=== PATIENT | female | born 1985 | race Caucasian/White ===

== ENCOUNTER 2017-01-02 23:01 | Emergency (ER) | payer OTHER ==
--- NOTE | 2017-01-03 00:39 | ED PDOC ---
HPI: General Adult Time Seen by Provider: 01/03/17 00:00 Chief Complaint (Nursing): Flu-like Symptoms Chief Complaint (Provider): sore throat, neck pain, fever, nausea History Per: Patient History/Exam Limitations: no limitations Onset/Duration Of Symptoms: Days (1) Have you had recent travel within the past 21 days to any of the following countries: [place], [place], [place] or [place]?: No Current Symptoms Are (Timing): Still Present Additional Complaint(s): 31yo female presents to the ED with c/o sore throat, anterior neck pain, fever, nausea since yesterday. Tylenol provided some relief. Patient notes her voice changed some tonight. No vomiting, diarrhea, cough, runny nose. Past Medical History Reviewed: Historical Data, Nursing Documentation, Vital Signs Vital Signs: Last Vital Signs Temp 98.1 F 01/03/17 03:31 Pulse 75 01/03/17 03:31 Resp 16 01/03/17 03:31 BP 125/80 01/03/17 03:31 Pulse Ox 99 01/03/17 03:31 - Medical History PMH: No Chronic Diseases - Surgical History Surgical History: - Family History Family History: States: No Known Family Hx - Social History Current smoker - smoking cessation education provided: No Alcohol: None Drugs: Denies - Home Medications Home Medications: Ambulatory Orders Medication Instructions Recorded Amoxicillin/Clavulanate [Augmentin 1 tab PO BID #20 tab 01/03/17 875 MG-125 MG] - Allergies Allergies/Adverse Reactions: Allergies Allergy/AdvReac Type Severity Reaction Status Date / Time No Known Allergies Allergy Verified 01/02/17 23:14 Review of Systems ROS Statement: Except As Marked, All Systems Reviewed And Found Negative Constitutional: Positive for: Fever ENT: Positive for: Throat Pain. Negative for: Nose Discharge Respiratory: Negative for: Cough Gastrointestinal: Positive for: Nausea. Negative for: Vomiting, Diarrhea Musculoskeletal: Positive for: Neck Pain Physical Exam - Reviewed Nursing Documentation Reviewed: Yes Vital Signs Reviewed: Yes - Physical Exam Appears: Positive for: Well, No Acute Distress Head Exam: Positive for: ATRAUMATIC, NORMAL INSPECTION, NORMOCEPHALIC Skin: Positive for: Normal Color, Warm, Dry Eye Exam: Positive for: Normal appearance, EOMI, PERRL ENT: Positive for: Pharyngeal Erythema, Other (b/l tonsillar erythema, petechiae in mouth ). Negative for: Tonsillar Exudate, Tonsillar Swelling Neck: Positive for: Normal, Painless ROM, Supple Cardiovascular/Chest: Positive for: Regular Rate, Rhythm. Negative for: Murmur , Tachycardia Respiratory: Positive for: Normal Breath Sounds. Negative for: Wheezing, Respiratory Distress Gastrointestinal/Abdominal: Positive for: Normal Exam, Bowel Sounds, Soft. Negative for: Tenderness Back: Positive for: Normal Inspection. Negative for: L CVA Tenderness, R CVA Tenderness Extremity: Positive for: Normal ROM. Negative for: Deformity, Swelling Neurologic/Psych: Positive for: Alert, Oriented - Laboratory Results Result Diagrams: 01/03/17 00:52 01/03/17 00:52 - ECG O2 Sat by Pulse Oximetry: 96 Pulse Ox Interpretation: Normal (RA) Medical Decision Making Medical Decision Makin: Impression: r/o strep vs. flu Plan: Labs IVF, Toradol 30mg IV, Zofran 4mg IV flu, strep swabs reassess 0315: Labs reviewed, strep swab positive and urine indicative of UTI. Patient given Rx for augmentin and is stable for d/c. Advised to f/u w/ PCP in 1-2 days and return to ED with any worsening or concerning symptoms. Scribe Attestation: Documented by Danielle Guadalupe acting as a scribe for Yousuf Jones MD. Provider Scribe Attestation: All medical record entries made by the Scribe were at my direction and personally dictated by me. I have reviewed the chart and agree that the record accurately reflects my personal performance of the history, physical exam, medical decision making, and the department course for this patient. I have also personally directed, reviewed, and agree with the discharge instructions and disposition. Disposition - Clinical Impression Clinical Impression: Strep pharyngitis, UTI (urinary tract infection) - Patient ED Disposition Is Patient to be Admitted: No Counseled Patient/Family Regarding: Studies Performed, Diagnosis, Need For Followup, Rx Given - Disposition Referrals: Cliff Gatica MD [Primary Care Provider] - Disposition: Routine/Home Disposition Time: 02:00 Condition: GOOD Additional Instructions: follow up with your primary doctor in1-2 days. return to the ED with any worsening or concerning symptoms Prescriptions: Amoxicillin/Clavulanate [Augmentin 875 MG-125 MG] 1 tab PO BID #20 tab Instructions: Urinary Tract Infection in Women (ED), Pharyngitis (ED)
[2017-01-03] MEDS ORDERED: Sodium Chloride 0.9% 1,000 ML IV STA (00:40)
[2017-01-03 01:25] LABS: BASO % 0.1 % (0.0-2.0); EOS % 0.3 % (0.0-4.0); HEMATOCRIT 41.6 % (34.0-47.0); LYMPH # 0.6 K/uL (1.0-4.3); LYMPH % 4.4 % (20.0-40.0); MEAN CELL VOLUME 86.7 fl (81.0-99.0); MEAN CORPUSCULAR HEMOGLOBIN 30.1 pg (27.0-31.0); MEAN CORPUSCULAR HGB CONC 34.8 g/dL (33.0-37.0); MEAN PLATELET VOLUME 7.9 fl (7.2-11.7); MONO # 0.6 K/uL (0.0-0.8); MONO % 4.5 % (0.0-10.0); NEUT # 12.1 K/uL (1.8-7.0); NEUT % 90.7 % (50.0-75.0); PLATELET COUNT 197 K/uL (130-400); RED CELL DISTRIBUTION WIDTH 12.5 % (11.5-14.5); WHITE BLOOD COUNT 13.3 K/uL (4.8-10.8)
[2017-01-03 01:42] LABS: ALB/GLOB RATIO 1.2 (1.0-2.1); ALKALINE PHOSPHATASE 119 U/L (38-126); ALT/SGPT 20 U/L (9-52); AST/SGOT 33 U/L (14-36); BILIRUBIN,TOTAL 1.9 mg/dl (0.2-1.3); BLOOD UREA NITROGEN 9 mg/dl (7-17); CALCIUM 9.5 mg/dL (8.4-10.2); CARBON DIOXIDE 22 mmol/L (22-30); CHLORIDE 103 mmol/L (98-107); GFR AFRICAN-AMERICAN > 60; GLUCOSE,RANDOM 115 mg/dL (65-105); POTASSIUM 4.4 MMOL/L (3.6-5.0); SODIUM 142 mmol/l (132-148); TOTAL PROTEIN 8.4 G/DL (6.3-8.2)
[2017-01-03 01:42] LABS: RBC URINE 2 /hpf (0-3); URINE BACTERIA MANY (<OCC); URINE BILIRUBIN NEGATIVE (NEGATIVE); URINE BLOOD SMALL (NEGATIVE); URINE COLOR YELLOW (YELLOW); URINE GLUCOSE (UA) NEG (Normal); URINE KETONE NEGATIVE (NEGATIVE); URINE LEUKOCYTE ESTERASE MOD Leu/uL (Negative); URINE PROTEIN NEGATIVE (NEGATIVE); URINE UROBILINOGEN 0.2-1.0 mg/dL (0.2-1.0); WBC URINE 19 /hpf (0-5)
[2017-01-03] MEDS ORDERED: Amoxicillin-Clav 250-125 mg Tab PO ONE (03:12)
[2017-01-03] MEDS ORDERED: Amoxicillin-Clav 875-125 mg Tab PO STA (03:16)
[2017-01-03 03:32] VITALS: BP 125/80; PULSE 75; RESP 16; TEMP 98.1
[2017-01-03 05:11] LABS: NEUTROPHIL 86 % (42-75)
[2017-01-03 05:12] LABS: EOSINOPHIL 1 % (0-7)
[2017-01-03 06:30] VITALS: O2SAT 96
[2017-01-03 06:46] LABS: TOTAL CELLS COUNTED 100
== END 2017-01-03 03:32 | disposition home or self-care (01) ==
LOC: H.ER 23:01
DX: J02.0 Streptococcal pharyngitis (principal); M54.2 Cervicalgia; N39.0 Urinary tract infection, site not specified

== ENCOUNTER 2017-01-11 08:40 | Emergency (ER) | payer OTHER ==
[2017-01-11 09:08] VITALS: BP 105/77; PULSE 98; RESP 18; TEMP 98.1; O2SAT 98
--- NOTE | 2017-01-11 09:27 | ED PDOC ---
HPI: CCC, URI, Sore Throat Time Seen by Provider: 01/11/17 08:56 Chief Complaint (Nursing): Cough, Cold, Congestion Chief Complaint (Provider): Cough, Cold, Congestion History Per: Patient History/Exam Limitations: no limitations Onset/Duration Of Symptoms: Days Current Symptoms Are (Timing): Still Present Location Of Pain: Throat Sick Contacts (Context): None Associated Symptoms: Cough, Sputum Ear Symptoms: Bilateral: None Severity: Mild Additional Complaint(s): Patient is a 31 year old female who presents to ED for evaluation of sore throat and dysuria for 1week. Patient was initially evaluated at the start of sore throat, diagnosed with strep and started on Augmentin. Presents today for continued sore that and now dsyuria. Denies vomiting but notes productive cough of yellow sputum . Past Medical History Reviewed: Historical Data, Nursing Documentation, Vital Signs Vital Signs: Last Vital Signs Temp 98.1 F 01/11/17 09:05 Pulse 98 H 01/11/17 09:05 Resp 18 01/11/17 09:05 BP 105/77 01/11/17 09:05 Pulse Ox 98 01/11/17 09:30 - Medical History PMH: No Chronic Diseases - Surgical History Surgical History: - Family History Family History: States: No Known Family Hx - Living Arrangements Living Arrangements: With Family - Home Medications Home Medications: Ambulatory Orders Medication Instructions Recorded Amoxicillin/Clavulanate [Augmentin 1 tab PO BID #20 tab 01/03/17 875 MG-125 MG] Azithromycin [Zithromax] 250 mg PO DAILY #6 tab 01/11/17 - Allergies Allergies/Adverse Reactions: Allergies Allergy/AdvReac Type Severity Reaction Status Date / Time No Known Allergies Allergy Verified 01/02/17 23:14 Review of Systems ROS Statement: Except As Marked, All Systems Reviewed And Found Negative Constitutional: Negative for: Fever, Chills ENT: Positive for: Throat Pain. Negative for: Throat Swelling Cardiovascular: Negative for: Chest Pain Gastrointestinal: Negative for: Nausea, Vomiting, Abdominal Pain Genitourinary Female: Positive for: Dysuria. Negative for: Frequency, Hematuria Musculoskeletal: Negative for: Back Pain Physical Exam - Reviewed Nursing Documentation Reviewed: Yes Vital Signs Reviewed: Yes - Physical Exam Appears: Positive for: Non-toxic, No Acute Distress Skin: Positive for: Normal Color, Warm Eye Exam: Positive for: Normal appearance ENT: Positive for: Pharyngeal Erythema. Negative for: Tonsillar Exudate Neck: Positive for: Normal, Painless ROM, Supple Gastrointestinal/Abdominal: Positive for: Normal Exam. Negative for: Tenderness , Distended Back: Positive for: Normal Inspection. Negative for: L CVA Tenderness, R CVA Tenderness Extremity: Positive for: Normal ROM Neurologic/Psych: Positive for: Alert, Oriented - ECG O2 Sat by Pulse Oximetry: 98 (RA) Pulse Ox Interpretation: Normal Medical Decision Making Medical Decision Making: Time: 0900 Initial impression: Strep throat r/o UTI Initial plan: -- Urine preg -- Urine dip -- CXR Scribe Attestation: Documented by Pema Lee acting as a scribe for Kahlil Meza MD MD Scribe Attestation: All medical record entries made by the Scribe were at my direction and personally dictated by me. I have reviewed the chart and agree that the record accurately reflects my personal performance of the history, physical exam, medical decision making, and the department course for this patient. I have also personally directed, reviewed, and agree with the discharge instructions and disposition. Disposition - Clinical Impression Clinical Impression: Strep pharyngitis, Upper respiratory infection - Patient ED Disposition Is Patient to be Admitted: No Counseled Patient/Family Regarding: Studies Performed, Diagnosis, Need For Followup, Rx Given - Disposition Referrals: [facility] [Outside] Disposition: Routine/Home Disposition Time: 10:26 Condition: FAIR Prescriptions: Azithromycin [Zithromax] 250 mg PO DAILY #6 tab Instructions: Strep Throat (ED), Pharyngitis (ED), Upper Respiratory Infection (ED)
--- NOTE | 2017-01-11 11:25 | RAD ---
HISTORY: Cough. Portable study 10:01. COMPARISON: No prior. FINDINGS: LUNGS: No active pulmonary disease. PLEURA: No significant pleural effusion identified, no pneumothorax apparent. CARDIOVASCULAR: Normal. OSSEOUS STRUCTURES: No significant abnormalities. VISUALIZED UPPER ABDOMEN: Normal. OTHER FINDINGS: None. IMPRESSION: No active disease.
== END 2017-01-11 11:10 | disposition home or self-care (01) ==
LOC: H.ER 08:40
DX: J06.9 Acute upper respiratory infection, unspecified (principal); R05 Cough; J02.0 Streptococcal pharyngitis

== ENCOUNTER 2017-03-22 12:39 | Emergency (ER) | payer OTHER ==
[2017-03-22 12:53] VITALS: BP 100/64; PULSE 76; RESP 16; TEMP 98.5; O2SAT 100
--- NOTE | 2017-03-22 13:32 | ED PDOC ---
HPI: General Adult Time Seen by Provider: 03/22/17 13:06 Chief Complaint (Nursing): Fever Chief Complaint (Provider): fever, vomiting History Per: Patient Additional Complaint(s): 30-year-old female with no past medical history presents to emergency department complaining of fever and vomiting 1 day. Patient vomited twice this morning but was able to tolerate liquids and solids after she vomited. She has slight abdominal pain and slight sore throat. No associated diarrhea. Patient does complain of body aches. Patient's son is with patient in ED and is sick with similar symptoms. Past Medical History Reviewed: Historical Data, Nursing Documentation, Vital Signs Vital Signs: Last Vital Signs Temp 98.5 F 03/22/17 12:50 Pulse 76 03/22/17 12:50 Resp 16 03/22/17 12:50 BP 100/64 03/22/17 12:50 Pulse Ox 100 03/22/17 14:04 - Medical History PMH: No Chronic Diseases - Surgical History Surgical History: (x 2) - Family History Family History: States: No Known Family Hx - Living Arrangements Living Arrangements: With Family - Social History Current smoker - smoking cessation education provided: No Alcohol: None Drugs: Denies - Home Medications Home Medications: Ambulatory Orders Medication Instructions Recorded Amoxicillin/Clavulanate [Augmentin 1 tab PO BID #20 tab 01/03/17 875 MG-125 MG] Azithromycin [Zithromax] 250 mg PO DAILY #6 tab 01/11/17 Ondansetron [Zofran Odt] 4 mg PO ASDIR PRN #20 odt 03/22/17 - Allergies Allergies/Adverse Reactions: Allergies Allergy/AdvReac Type Severity Reaction Status Date / Time No Known Allergies Allergy Verified 01/02/17 23:14 Review of Systems ROS Statement: Except As Marked, All Systems Reviewed And Found Negative Constitutional: Positive for: Fever (T max this morning was 100.2), Other (body aches) ENT: Positive for: Throat Pain Cardiovascular: Negative for: Chest Pain Respiratory: Negative for: Cough Gastrointestinal: Positive for: Nausea, Vomiting, Abdominal Pain. Negative for : Diarrhea Genitourinary Female: Negative for: Dysuria Physical Exam - Reviewed Nursing Documentation Reviewed: Yes Vital Signs Reviewed: Yes - Physical Exam Appears: Positive for: Well, Non-toxic, No Acute Distress Skin: Negative for: Rash Eye Exam: Positive for: Normal appearance, EOMI, PERRL ENT: Positive for: Pharyngeal Erythema. Negative for: Nasal Congestion Neck: Positive for: Normal Cardiovascular/Chest: Positive for: Regular Rate, Rhythm Respiratory: Positive for: Normal Breath Sounds Gastrointestinal/Abdominal: Positive for: Soft. Negative for: Tenderness, Distended, Guarding, Rebound Back: Negative for: L CVA Tenderness, R CVA Tenderness Extremity: Positive for: Normal ROM Neurologic/Psych: Positive for: Alert, Oriented - Laboratory Results Urine POC: Negative Urine dip results: Negative for: Leukocyte Esterase, Blood, Nitrate, Ketones, Glucose, Bilirubin, Protein - ECG O2 Sat by Pulse Oximetry: 100 Pulse Ox Interpretation: Normal Medical Decision Making Medical Decision Makin31 year old with fever, vomiting and sore throat Plan: Rapid strep and throat culture Flu swab Urine and dip Zofran ODT 4 mg Patient tolerated water in the ED with no further emesis, she feels much better. Prescription given for Zofran. Advised Tylenol when necessary for fever and follow-up with primary doctor in 2-3 days. Disposition - Clinical Impression Clinical Impression: Fever, Vomiting - Patient ED Disposition Is Patient to be Admitted: No Counseled Patient/Family Regarding: Studies Performed, Diagnosis, Need For Followup, Rx Given - Disposition Referrals: [facility] [Outside] Disposition: Routine/Home Disposition Time: 15:51 Condition: IMPROVED Additional Instructions: Tylenol for pain as needed. Take prescription meds as directed as needed for nausea and vomiting. Drink plenty of fluids and follow bland diet. Follow-up with primary doctor in 2-3 days. Prescriptions: Ondansetron [Zofran Odt] 4 mg PO ASDIR PRN #20 odt PRN Reason: Nausea/Vomiting Instructions: Acute Nausea and Vomiting (ED), Fever in Adults (ED)
== END 2017-03-22 16:15 | disposition home or self-care (01) ==
LOC: H.ER 12:39
DX: R50.9 Fever, unspecified (principal); R11.10 Vomiting, unspecified; J02.9 Acute pharyngitis, unspecified

== ENCOUNTER 2017-10-09 15:59 | Emergency (ER) | payer OTHER ==
[2017-10-09 16:13] VITALS: BP 104/58; PULSE 76; RESP 18; TEMP 98; O2SAT 100
--- NOTE | 2017-10-09 16:26 | ED PDOC ---
HPI: Fever Additional Comments: Patient is a 32 y/o female with no significant past medical history presenting to the emergency department for a fever today with associated bilateral ear and throat pain x2 days. Notes that her fever was 102 F at home. Reports having a dry throat and also took Motrin today at 1 p.m. Denies any other complaints. PCP: Dr. David Burton Past Medical History Reviewed: Historical Data, Nursing Documentation, Vital Signs Vital Signs: Last Vital Signs Temp 98 F 10/09/17 16:11 Pulse 76 10/09/17 16:11 Resp 18 10/09/17 16:11 BP 104/58 L 10/09/17 16:11 Pulse Ox 100 10/09/17 18:21 - Medical History PMH: No Chronic Diseases - Surgical History Surgical History: (x 2) - Family History Family History: States: Unknown Family Hx - Living Arrangements Living Arrangements: With Family - Social History Current smoker - smoking cessation education provided: No Alcohol: Occasional Drugs: Denies - Home Medications Home Medications: Ambulatory Orders Medication Instructions Recorded Amoxicillin/Clavulanate [Augmentin 1 tab PO BID #20 tab 01/03/17 875 MG-125 MG] Azithromycin [Zithromax] 250 mg PO DAILY #6 tab 01/11/17 Ondansetron [Zofran Odt] 4 mg PO ASDIR PRN #20 odt 03/22/17 Oseltamivir [Tamiflu] 75 mg PO BID #10 cap 10/09/17 - Allergies Allergies/Adverse Reactions: Allergies Allergy/AdvReac Type Severity Reaction Status Date / Time No Known Allergies Allergy Verified 10/09/17 16:11 Review of Systems ROS Statement: Except As Marked, All Systems Reviewed And Found Negative Constitutional: Positive for: Fever ENT: Positive for: Ear Pain (bilateral), Throat Pain (dry) Physical Exam - Reviewed Nursing Documentation Reviewed: Yes Vital Signs Reviewed: Yes - Physical Exam Appears: Positive for: Well, Non-toxic, No Acute Distress Head Exam: Positive for: ATRAUMATIC, NORMAL INSPECTION, NORMOCEPHALIC Skin: Positive for: Normal Color, Warm, Dry Eye Exam: Positive for: Normal appearance ENT: Positive for: Normal ENT Inspection, Pharynx Is (normal), TM Is/Are (normal ). Negative for: Pharyngeal Erythema, Tonsillar Exudate Neck: Positive for: Normal, Painless ROM Cardiovascular/Chest: Positive for: Regular Rate, Rhythm. Negative for: Murmur Respiratory: Positive for: Normal Breath Sounds. Negative for: Accessory Muscle Use, Respiratory Distress Extremity: Positive for: Normal ROM. Negative for: Pedal Edema Neurologic/Psych: Positive for: Alert, Oriented (x3) - ECG O2 Sat by Pulse Oximetry: 100 (RA) Pulse Ox Interpretation: Normal Medical Decision Making Medical Decision Making: Time: 16:24 Initial impression: fever, bilateral ear pain, and throat pain Initial plan: ED Urine PredniSONE 60 mg PO Influenza test ~ Scribe Attestation: Documented by Racquel Weaver, acting as a scribe for TALISHA Torre. Provider Scribe Attestation: All medical record entries made by the Scribe were at my direction and personally dictated by me. I have reviewed the chart and agree that the record accurately reflects my personal performance of the history, physical exam, medical decision making, and the department course for this patient. I have also personally directed, reviewed, and agree with the discharge instructions and disposition. Disposition - Clinical Impression Clinical Impression: Influenza - Patient ED Disposition Is Patient to be Admitted: No Counseled Patient/Family Regarding: Diagnosis, Need For Followup, Rx Given - Disposition Disposition: Routine/Home Disposition Time: 18:22 Condition: GOOD Prescriptions: Oseltamivir [Tamiflu] 75 mg PO BID #10 cap Instructions: Influenza (ED) Forms: [employer] (Urdu)
[2017-10-09] MEDS ORDERED: Morphine 4 MG/ML VIAL ONE (18:37)
== END 2017-10-09 18:34 | disposition home or self-care (01) ==
LOC: H.ER 15:59
DX: J11.1 Influenza due to unidentified influenza virus with other respiratory manifestations (principal)

== ENCOUNTER 2017-11-11 17:34 | Emergency (ER) | payer OTHER, SELFPAY ==
[2017-11-11 18:49] VITALS: BP 112/71; PULSE 78; RESP 16; TEMP 98.4; O2SAT 99
== END 2017-11-11 19:20 | disposition left against medical advice (07) ==
LOC: H.ER 17:34
DX: Z02.89 Encounter for other administrative examinations (principal)

== ENCOUNTER 2017-11-11 21:10 | Emergency (ER) | payer SELFPAY ==
[2017-11-11 22:23] VITALS: BP 121/73; PULSE 90; RESP 16; TEMP 98; O2SAT 99
--- NOTE | 2017-11-11 23:18 | ED PDOC ---
HPI: General Adult Time Seen by Provider: 11/11/17 22:50 Chief Complaint (Nursing): Female Genitourinary Chief Complaint (Provider): fever History Per: Patient History/Exam Limitations: no limitations Onset/Duration Of Symptoms: Days (2) Additional Complaint(s): 32 y/o female presents with fever x 2 days. Associated sore throat, chills, and dysuria. Denies nausea/vomiting, cough, chest pain, shortness of breath, back pain, abdominal pain, changes in bowel movements, recent travel. Past Medical History Reviewed: Historical Data, Nursing Documentation, Vital Signs Vital Signs: Last Vital Signs Temp 98.0 F 11/11/17 22:21 Pulse 90 11/11/17 22:21 Resp 16 11/11/17 22:21 BP 121/73 11/11/17 22:21 Pulse Ox 99 11/12/17 00:07 - Medical History PMH: No Chronic Diseases - Surgical History Surgical History: (x 2) - Family History Family History: States: Unknown Family Hx - Home Medications Home Medications: Ambulatory Orders Medication Instructions Recorded Amoxicillin/Clavulanate [Augmentin 1 tab PO BID #20 tab 01/03/17 875 MG-125 MG] Azithromycin [Zithromax] 250 mg PO DAILY #6 tab 01/11/17 Ondansetron [Zofran Odt] 4 mg PO ASDIR PRN #20 odt 03/22/17 Oseltamivir [Tamiflu] 75 mg PO BID #10 cap 10/09/17 Nitrofurantoin Macrocrystals 100 mg PO BID #13 cap 11/12/17 [Macrobid] Phenazopyridine HCl [Pyridium] 100 mg PO TID PRN #5 tab 11/12/17 - Allergies Allergies/Adverse Reactions: Allergies Allergy/AdvReac Type Severity Reaction Status Date / Time No Known Allergies Allergy Verified 10/09/17 16:11 Review of Systems ROS Statement: Except As Marked, All Systems Reviewed And Found Negative Constitutional: Positive for: Fever, Chills ENT: Positive for: Throat Pain Genitourinary Female: Positive for: Dysuria Physical Exam - Reviewed Nursing Documentation Reviewed: Yes Vital Signs Reviewed: Yes - Physical Exam Appears: Positive for: Well, Non-toxic, No Acute Distress Head Exam: Positive for: ATRAUMATIC, NORMAL INSPECTION, NORMOCEPHALIC Skin: Positive for: Normal Color Eye Exam: Positive for: Normal appearance ENT: Positive for: Normal ENT Inspection Cardiovascular/Chest: Positive for: Regular Rate, Rhythm Respiratory: Positive for: Normal Breath Sounds Gastrointestinal/Abdominal: Positive for: Normal Exam, Bowel Sounds, Soft. Negative for: Tenderness Back: Negative for: L CVA Tenderness, R CVA Tenderness Extremity: Positive for: Normal ROM Neurologic/Psych: Positive for: Alert, Oriented - ECG O2 Sat by Pulse Oximetry: 99 - Progress ED Course And Treament: urine, flu, strep Patient educated on findings, discharged with rx Macrobid, Pyridium (doses given in ED) Advised follow up PMD 2-3 days. Fluids. Return precautions given. Disposition - Clinical Impression Clinical Impression: UTI (urinary tract infection) - Patient ED Disposition Is Patient to be Admitted: No Counseled Patient/Family Regarding: Studies Performed, Diagnosis, Need For Followup, Rx Given - Disposition Disposition: Routine/Home Disposition Time: 01:07 Condition: IMPROVED Prescriptions: Nitrofurantoin Macrocrystals [Macrobid] 100 mg PO BID #13 cap Phenazopyridine HCl [Pyridium] 100 mg PO TID PRN #5 tab PRN Reason: Urinary Discomt Instructions: Urinary Tract Infection in Women (ED)
[2017-11-11 23:52] LABS: SQUAMOUS EPITHIAL < 1 /hpf (0-5); URINE BACTERIA OCC (<OCC); URINE BILIRUBIN NEGATIVE (NEGATIVE); URINE BLOOD LARGE (NEGATIVE); URINE CLARITY SLIGHTY-CLOUDY (Clear); URINE COLOR YELLOW (YELLOW); URINE GLUCOSE (UA) NEG (Normal); URINE LEUKOCYTE ESTERASE LARGE Leu/uL (Negative); URINE NITRATE NEGATIVE (NEGATIVE); URINE PROTEIN NEGATIVE (NEGATIVE); URINE UROBILINOGEN 0.2-1.0 mg/dL (0.2-1.0)
== END 2017-11-12 01:55 | disposition home or self-care (01) ==
LOC: H.ER 21:10
DX: N39.0 Urinary tract infection, site not specified (principal)

== ENCOUNTER 2017-12-30 12:09 | Emergency (ER) | payer SELFPAY ==
[2017-12-30 12:26] VITALS: RESP 20
[2017-12-30] MEDS ORDERED: Alum-Mag Hydrox-Simethicone Susp (30 mL) PO STA (13:05)
[2017-12-30] MEDS ORDERED: Alum-Mag Hydrox-Simethicone Susp (30 mL) ONE (13:22)
[2017-12-30 13:27] LABS: BASO % 0.6 % (0.0-2.0); EOS # 0.1 K/uL (0.0-0.7); EOS % 1.7 % (0.0-4.0); HEMOGLOBIN 15.7 g/dL (12.0-16.0); LYMPH % 29.5 % (20.0-40.0); MEAN CELL VOLUME 87.8 fl (81.0-99.0); MEAN CORPUSCULAR HGB CONC 35.4 g/dL (33.0-37.0); MEAN PLATELET VOLUME 7.3 fl (7.2-11.7); MONO # 0.5 K/uL (0.0-0.8); MONO % 7.4 % (0.0-10.0); NEUT % 60.8 % (50.0-75.0); NRBC % 0.1 % (0.0-0.0); RBC 5.05 Mil/uL (3.80-5.20); RED CELL DISTRIBUTION WIDTH 12.4 % (11.5-14.5); WHITE BLOOD COUNT 6.6 K/uL (4.8-10.8)
[2017-12-30 13:39] LABS: ALB/GLOB RATIO 1.1 (1.0-2.1); ALBUMIN 4.7 g/dL (3.5-5.0); ALT/SGPT 33 U/L (9-52); AST/SGOT 29 U/L (14-36); BLOOD UREA NITROGEN 9 mg/dl (7-17); CALCIUM 9.7 mg/dL (8.4-10.2); GFR AFRICAN-AMERICAN > 60; GFR NON-AFRICAN AMERICAN > 60
[2017-12-30 14:45] VITALS: BP 110/70; TEMP 98.6; O2SAT 98
--- NOTE | 2017-12-30 15:00 | ED PDOC ---
HPI: Chest Pain Time Seen by Provider: 12/30/17 12:54 Chief Complaint (Nursing): Chest Pain Chief Complaint (Provider): Chest Pain History Per: Patient History/Exam Limitations: no limitations Onset/Duration Of Symptoms: Days (x14) Current Symptoms Are (Timing): Still Present Quality: Sharp Associated Symptoms: denies: Nausea Exacerbating Factors: Movement (of arm) Additional Complaint(s): Teodoro her a is a 32 year old female with no past medical history, who is presenting to the ER with complaints of frequent belching associated with sharp left sided chest pain, onset 2 weeks ago. Patient states that pain increases with movement of arm, and reports not taking any medications for the symptoms prior to arrival. She denies any shortness of breath, cough, abdominal pain, nausea, or vomiting. Patient offers no other medical complaints at this time. PMD: Ramiro Hutchison Past Medical History Reviewed: Historical Data, Nursing Documentation, Vital Signs Vital Signs: Last Vital Signs Temp 98.6 F 12/30/17 14:44 Pulse 83 12/30/17 15:06 Resp 20 12/30/17 14:44 BP 110/70 12/30/17 14:44 Pulse Ox 98 12/30/17 15:06 - Medical History PMH: No Chronic Diseases - Surgical History Surgical History: (x 2) - Family History Family History: States: Unknown Family Hx - Social History Current smoker - smoking cessation education provided: No Alcohol: None Drugs: Denies - Home Medications Home Medications: Ambulatory Orders Medication Instructions Recorded Amoxicillin/Clavulanate [Augmentin 1 tab PO BID #20 tab 01/03/17 875 MG-125 MG] Azithromycin [Zithromax] 250 mg PO DAILY #6 tab 01/11/17 Ondansetron [Zofran Odt] 4 mg PO ASDIR PRN #20 odt 03/22/17 Oseltamivir [Tamiflu] 75 mg PO BID #10 cap 10/09/17 Nitrofurantoin Macrocrystals 100 mg PO BID #13 cap 11/12/17 [Macrobid] Phenazopyridine HCl [Pyridium] 100 mg PO TID PRN #5 tab 11/12/17 Ranitidine HCl [Zantac] 150 mg PO BID #20 tablet 12/30/17 Simethicone [Mylicon Chew Tab] 80 mg PO Q8 PRN #20 ctb 12/30/17 - Allergies Allergies/Adverse Reactions: Allergies Allergy/AdvReac Type Severity Reaction Status Date / Time No Known Allergies Allergy Verified 12/30/17 12:21 Review of Systems ROS Statement: Except As Marked, All Systems Reviewed And Found Negative Cardiovascular: Positive for: Chest Pain Respiratory: Negative for: Cough, Shortness of Breath Gastrointestinal: Positive for: Other (belching). Negative for: Nausea, Vomiting, Abdominal Pain Physical Exam - Reviewed Nursing Documentation Reviewed: Yes Vital Signs Reviewed: Yes - Physical Exam Appears: Positive for: Non-toxic, No Acute Distress Head Exam: Positive for: ATRAUMATIC, NORMAL INSPECTION, NORMOCEPHALIC Skin: Positive for: Normal Color, Warm, Dry Eye Exam: Positive for: EOMI, Normal appearance, PERRL Neck: Positive for: Normal, Painless ROM, Supple Cardiovascular/Chest: Positive for: Regular Rate, Rhythm. Negative for: Murmur Respiratory: Positive for: Normal Breath Sounds. Negative for: Respiratory Distress Gastrointestinal/Abdominal: Positive for: Normal Exam, Soft. Negative for: Tenderness Back: Positive for: Normal Inspection. Negative for: L CVA Tenderness, R CVA Tenderness, Vertebral Tenderness Extremity: Positive for: Normal ROM. Negative for: Deformity, Swelling Neurologic/Psych: Positive for: Alert, Oriented. Negative for: Motor/Sensory Deficits - Laboratory Results Result Diagrams: 12/30/17 13:21 12/30/17 13:21 - ECG ECG Rhythm: Positive for: Normal QRS, Sinus Rhythm (normal) Interpretation Of ECG: Normal Access Rate: 83 O2 Sat by Pulse Oximetry: 98 (RA) Pulse Ox Interpretation: Normal Medical Decision Making Medical Decision Making: Time: 13:21 Initial Plan: --CMP --Troponin --CBC --Maalox 30 ml pO --Toradol 30 mg IVP --POC Urine 13:45 Reevaluation: Patient states that she is feeling better and sees an improvement in symptoms. Upon provider evaluation patient is medically stable, and requires no further treatment in the ED at this time. Patient will be discharged. Counseling was provided and all questions were answered regarding diagnosis and need for follow up with PMD. There is agreement to discharge plan. Return if symptoms persist or worsen. Scribe Attestation: Documented by Madelaine Sheppard, acting as a scribe for Yuri Llanes DO. Provider Scribe Attestation: All medical record entries made by the Scribe were at my direction and personally dictated by me. I have reviewed the chart and agree that the record accurately reflects my personal performance of the history, physical exam, medical decision making, and the department course for this patient. I have also personally directed, reviewed, and agree with the discharge instructions and disposition. Disposition - Clinical Impression Clinical Impression: Atypical chest pain - Disposition Referrals: [facility] Nidia Rubio, [Non-Staff] - Disposition Time: 13:50 Condition: GOOD Additional Instructions: Thank you for letting us take care of you today. The emergency medical care you received today was directed at your acute symptoms. If you were prescribed any medication, please fill it and take as directed. It may take several days for your symptoms to resolve. Return to the Emergency Department if your symptoms worsen, do not improve, or if you have any other problems. Please contact your doctor or call one of the physicians/clinics you have been referred to that are listed on the Patient Visit Information form that is included in your discharge packet. Bring any paperwork you were given at discharge with you along with any medications you are taking to your follow up visit. Our treatment cannot replace ongoing medical care by a primary care provider (PCP) outside of the emergency department. Thank you for allowing the [facility] team to be part of your care today. Follow up with your doctor in 3-4 days for re-evaluation and further management. Prescriptions: Ranitidine HCl [Zantac] 150 mg PO BID #20 tablet Simethicone [Mylicon Chew Tab] 80 mg PO Q8 PRN #20 ctb PRN Reason: Nausea/Vomiting Instructions: Chest Pain That Is Not Caused by the Heart (DC) Forms: [employer] (Italian)
[2017-12-30 15:05] VITALS: PULSE 83
== END 2017-12-30 14:46 | disposition home or self-care (01) ==
LOC: H.ER 12:09
DX: R07.89 Other chest pain (principal)
CPT/HCPCS: 80053; 81025; 84484; 85025; 96374; 99283; J1885

== ENCOUNTER 2018-01-02 20:36 | Emergency (ER) | payer SELFPAY ==
[2018-01-02 21:02] VITALS: BP 125/77; PULSE 73; RESP 18; TEMP 98.1; O2SAT 100
--- NOTE | 2018-01-02 22:07 | ED PDOC ---
HPI: Chest Pain Time Seen by Provider: 01/02/18 21:06 Chief Complaint (Nursing): Chest Pain Chief Complaint (Provider): chest pain History Per: Patient History/Exam Limitations: no limitations Onset/Duration Of Symptoms: Days (2 weeks) Current Symptoms Are (Timing): Still Present Quality: "Pain" (LEFT shoulder radiating to LEFT arm and neck) Associated Symptoms: Nausea, Dyspnea. denies: Diaphoresis, Syncope Alleviating Factors: None Additional Complaint(s): Seen in this ER 2 days ago for same, reports no improvement with meds prescribed (mylanta, pepcid). now developed headache Associated with excessive burping, which she had 8 years ago when she was with her first child. Past Medical History Reviewed: Historical Data, Nursing Documentation, Vital Signs Vital Signs: Last Vital Signs Temp 98.1 F 01/02/18 20:57 Pulse 73 01/02/18 20:57 Resp 18 01/02/18 20:57 BP 125/77 01/02/18 20:57 Pulse Ox 100 01/02/18 22:14 - Medical History PMH: No Chronic Diseases - Surgical History Surgical History: (x 2) - Family History Family History: States: Other Other Family History: No significant lab abnormalities - Social History Current smoker - smoking cessation education provided: No Alcohol: None - Home Medications Home Medications: Ambulatory Orders Medication Instructions Recorded Amoxicillin/Clavulanate [Augmentin 1 tab PO BID #20 tab 01/03/17 875 MG-125 MG] Azithromycin [Zithromax] 250 mg PO DAILY #6 tab 01/11/17 Ondansetron [Zofran Odt] 4 mg PO ASDIR PRN #20 odt 03/22/17 Oseltamivir [Tamiflu] 75 mg PO BID #10 cap 10/09/17 Nitrofurantoin Macrocrystals 100 mg PO BID #13 cap 11/12/17 [Macrobid] Phenazopyridine HCl [Pyridium] 100 mg PO TID PRN #5 tab 11/12/17 Ranitidine HCl [Zantac] 150 mg PO BID #20 tablet 12/30/17 Simethicone [Mylicon Chew Tab] 80 mg PO Q8 PRN #20 ctb 12/30/17 Cyclobenzaprine [Flexeril] 5 mg PO Q8 PRN #15 tab 01/03/18 Naproxen [Naprosyn] 1 tab PO BID PRN #30 tab 01/03/18 Omeprazole Magnesium [Prilosec Otc] 20 mg PO DAILY #30 tcp 01/03/18 - Allergies Allergies/Adverse Reactions: Allergies Allergy/AdvReac Type Severity Reaction Status Date / Time No Known Allergies Allergy Verified 01/02/18 20:57 Review of Systems ROS Statement: Except As Marked, All Systems Reviewed And Found Negative (and as per HPI) Cardiovascular: Positive for: Chest Pain. Negative for: Edema, Light Headedness Respiratory: Positive for: Shortness of Breath, Pleuritic Pain Musculoskeletal: Positive for: Shoulder Pain Physical Exam - Reviewed Nursing Documentation Reviewed: Yes Vital Signs Reviewed: Yes - Physical Exam Appears: Positive for: Non-toxic, In Acute Distress Head Exam: Positive for: ATRAUMATIC, NORMOCEPHALIC Skin: Positive for: Warm, Dry Eye Exam: Positive for: EOMI, PERRL ENT: Positive for: Pharynx Is (clear) Neck: Positive for: Painless ROM, Supple Cardiovascular/Chest: Positive for: Regular Rate, Rhythm. Negative for: Murmur Respiratory: Positive for: Normal Breath Sounds. Negative for: Rales, Rhonchi, Wheezing, Respiratory Distress Gastrointestinal/Abdominal: Positive for: Soft. Negative for: Tenderness Back: Positive for: Normal Inspection. Negative for: Decreased ROM Extremity: Positive for: Normal ROM. Negative for: Deformity Lymphatic: Negative for: Adenopathy Neurologic/Psych: Positive for: Alert. Negative for: Motor/Sensory Deficits - Laboratory Results Result Diagrams: 01/02/18 22:25 01/02/18 22:25 - ECG ECG: Positive for: Interpreted By [facility] ECG Rhythm: Positive for: Normal QRS, Normal ST Segment, Sinus Rhythm O2 Sat by Pulse Oximetry: 100 Pulse Ox Interpretation: Normal - Radiology X-Ray: Interpreted by [facility] X-Ray Interpretation: No Acute Disease - Progress ED Course And Treament: No emergently significant lab abnormalities. Condition: Improved Disposition - Clinical Impression Clinical Impression: Chest pain Counseled Patient/Family Regarding: Studies Performed, Diagnosis - Disposition Referrals: [facility] [Outside] - 01/05/18 Disposition: Routine/Home Disposition Time: 00:17 Condition: IMPROVED Prescriptions: Cyclobenzaprine [Flexeril] 5 mg PO Q8 PRN #15 tab PRN Reason: muscle spasm Naproxen [Naprosyn] 1 tab PO BID PRN #30 tab PRN Reason: Pain Omeprazole Magnesium [Prilosec Otc] 20 mg PO DAILY #30 tcp Instructions: Chest Pain That Is Not Caused by the Heart (DC) Forms: [facility] ED School/Work Excuse
[2018-01-02 22:32] LABS: BASO # 0.1 K/uL (0.0-0.2); BASO % 0.5 % (0.0-2.0); EOS # 0.1 K/uL (0.0-0.7); EOS % 0.7 % (0.0-4.0); HEMOGLOBIN 14.1 g/dL (12.0-16.0); LYMPH # 1.6 K/uL (1.0-4.3); LYMPH % 17.2 % (20.0-40.0); MEAN CELL VOLUME 88.8 fl (81.0-99.0); MEAN CORPUSCULAR HEMOGLOBIN 30.7 pg (27.0-31.0); MEAN CORPUSCULAR HGB CONC 34.6 g/dL (33.0-37.0); MEAN PLATELET VOLUME 7.5 fl (7.2-11.7); MONO # 0.6 K/uL (0.0-0.8); NEUT # 7.2 K/uL (1.8-7.0); NEUT % 75.6 % (50.0-75.0); NRBC % 0.1 % (0.0-0.0); RBC 4.58 Mil/uL (3.80-5.20); RED CELL DISTRIBUTION WIDTH 12.7 % (11.5-14.5); WHITE BLOOD COUNT 9.5 K/uL (4.8-10.8)
[2018-01-02 23:02] LABS: B-TYPE NATRIURETIC PEPTIDE 46.9 pg/ml (0-450)
[2018-01-02 23:15] LABS: ALB/GLOB RATIO 1.2 (1.0-2.1); ALBUMIN 4.4 g/dL (3.5-5.0); ALT/SGPT 40 U/L (9-52); AST/SGOT 24 U/L (14-36); BLOOD UREA NITROGEN 9 mg/dl (7-17); CALCIUM 9.7 mg/dL (8.4-10.2); GFR AFRICAN-AMERICAN > 60; GFR NON-AFRICAN AMERICAN > 60
--- NOTE | 2018-01-03 10:27 | RAD ---
HISTORY: Left-sided chest pain COMPARISON: Comparison chest 01/11/2017 TECHNIQUE: Chest PA and lateral FINDINGS: LUNGS: No active pulmonary disease. PLEURA: No significant pleural effusion identified. No pneumothorax apparent. CARDIOVASCULAR: Normal. OSSEOUS STRUCTURES: No significant abnormalities. VISUALIZED UPPER ABDOMEN: Normal. OTHER FINDINGS: None. IMPRESSION: No active disease.
--- NOTE | 2018-01-05 13:42 | CARD ---
APPROVED REPORT EKG Measurement Heart [id number] <Conclusion> Normal sinus rhythm T wave abnormality, consider inferior ischemia Abnormal ECG
== END 2018-01-03 00:48 | disposition home or self-care (01) ==
LOC: H.ER 20:36
DX: R07.89 Other chest pain (principal)
CPT/HCPCS: 71046; 80053; 81025; 83735; 83880; 84100; 84443; 84484; 85025; 85378; 93005; 96374; 99283; J1885

== ENCOUNTER 2018-03-26 15:55 | Emergency (ER) | payer SELFPAY ==
[2018-03-26 16:08] VITALS: O2SAT 100
--- NOTE | 2018-03-26 17:22 | ED PDOC ---
HPI: General Adult Time Seen by Provider: 03/26/18 16:23 Chief Complaint (Nursing): Dizziness/Lightheaded Chief Complaint (Provider): Dizziness/Lightheaded History Per: Patient History/Exam Limitations: no limitations Onset/Duration Of Symptoms: Days (x5) Current Symptoms Are (Timing): Still Present Additional Complaint(s): 32 year old female with no past medical history presents to the ED complaining of lightheadedness associated with burning eyes, muscle ache, nausea, drowsy, cough, fullness to her ears, and intermittent pressure and headache to side of her head. Patient reports of taking Tylenol with relief occasionally. Patient states she has a two year old child who does not sleep through the night up until now. Patient reports lack of sleep has been normal for her. Otherwise: (- ) SOB, (-) chest pain, (-) URI, (-) rash, (-) vomiting, (-) abdominal pain, (-) diarrhea, (-) urinary symptoms, (-) travel, (-) fever, (-) trauma, (-) tinnitus , (-) hearing loss, (-) syncope, (-) GI bleeding. PMD: None Provided LNMP: 03/13/2018 Past Medical History Reviewed: Historical Data, Nursing Documentation, Vital Signs Vital Signs: Last Vital Signs Temp 98.5 F 03/26/18 16:05 Pulse 73 03/26/18 16:05 Resp 18 03/26/18 16:05 BP 109/67 03/26/18 16:05 Pulse Ox 100 03/26/18 19:07 - Medical History PMH: No Chronic Diseases - Surgical History Surgical History: (x 2) - Family History Family History: States: Unknown Family Hx - Home Medications Home Medications: Ambulatory Orders Medication Instructions Recorded Amoxicillin/Clavulanate [Augmentin 1 tab PO BID #20 tab 01/03/17 875 MG-125 MG] Azithromycin [Zithromax] 250 mg PO DAILY #6 tab 01/11/17 Ondansetron [Zofran Odt] 4 mg PO ASDIR PRN #20 odt 03/22/17 Oseltamivir [Tamiflu] 75 mg PO BID #10 cap 10/09/17 Nitrofurantoin Macrocrystals 100 mg PO BID #13 cap 11/12/17 [Macrobid] Phenazopyridine HCl [Pyridium] 100 mg PO TID PRN #5 tab 11/12/17 Ranitidine HCl [Zantac] 150 mg PO BID #20 tablet 12/30/17 Simethicone [Mylicon Chew Tab] 80 mg PO Q8 PRN #20 ctb 12/30/17 Cyclobenzaprine [Flexeril] 5 mg PO Q8 PRN #15 tab 01/03/18 Naproxen [Naprosyn] 1 tab PO BID PRN #30 tab 01/03/18 Omeprazole Magnesium [Prilosec Otc] 20 mg PO DAILY #30 tcp 01/03/18 - Allergies Allergies/Adverse Reactions: Allergies Allergy/AdvReac Type Severity Reaction Status Date / Time No Known Allergies Allergy Verified 03/26/18 16:05 Review of Systems ROS Statement: Except As Marked, All Systems Reviewed And Found Negative (as per HPI) Constitutional: Positive for: Weakness. Negative for: Fever ENT: Positive for: Ear Pain (fullness to ears) Respiratory: Positive for: Cough Gastrointestinal: Positive for: Nausea. Negative for: Vomiting, Diarrhea Neurological: Positive for: Headache (intermittent pressure and headache to side of head) Physical Exam - Reviewed Nursing Documentation Reviewed: Yes Vital Signs Reviewed: Yes - Physical Exam Comments: GENERAL APPEARANCE: Patient is awake, alert, not toxic appearing, in no acute distress. SKIN: Warm, dry; (-) cyanosis. HEAD: (-) scalp swelling or tenderness. EYES: (-) conjunctival pallor. ENMT: TMs normal. Mucous membranes moist. NECK: (-) tenderness, (-) stiffness, (-) lymphadenopathy. Carotids: (-) bruit. CHEST AND RESPIRATORY: (-) rales, (-) rhonchi, (-) wheezes; breath sounds equal bilaterally. HEART AND CARDIOVASCULAR: (-) irregularity; (-) murmur, (-) gallop. ABDOMEN AND GI: Soft; (-) distention, (-) tenderness, (-) rebound, (-) guarding , (-) palpable masses, (-) flank tenderness. EXTREMITIES: (-) deformity; (-) edema. Distal pulses: present. NEURO AND PSYCH: Mental status as above. choker hooker: (-) nystagmus; Pupils equal and reactive, EOMI (-) facial asymmetry; (-) dysarthria; tongue and uvula midline. Strength symmetric. Gait: normal. - Laboratory Results Result Diagrams: 03/26/18 17:20 03/26/18 17:20 - ECG O2 Sat by Pulse Oximetry: 100 (RA) Medical Decision Making Medical Decision Making: Time: 1654 Plan: -- CT Head w/o Contrast -- EKG -- CXR Two Views -- IV Insertion Time: 1707 Plan: -- CBC with differentials -- ED Urine Dipstick -- ED Urine -- Thyroid Stimulation -- CMP CXR : NAD, as read by TALISHA EKG : NSR at 64 bpm, (-) acute ST changes, as read by TALISHA. Uhcg : (-) UA : (-) for all blood/ketones/nitrate/leuks Lab results reviewed and wnl, TSH wnl. Time: [address] RESULTS FINDINGS: HEMORRHAGE: No acute parenchymal, subarachnoid or extra-axial hemorrhage. BRAIN: No evidence of large acute infarct. . Note that the possibility of a small hyperacute infarct cannot be completely excluded. . MRI with diffusion imaging could be performed if further evaluation is required VENTRICLES: No obstructive hydrocephalus. CALVARIUM: Unremarkable. PARANASAL SINUSES: Unremarkable as visualized. No significant inflammatory changes. MASTOID AIR CELLS: Unremarkable as visualized. No inflammatory changes. OTHER FINDINGS: None. IMPRESSION: No acute intracranial hemorrhage. . On re-evaluation, patient remains AAOx3, in no acute distress. Has no headache, dizziness, CP, SOB, nausea or abdominal pain. Repeat neuro exam shows no focal findings. Lab and CT Diagnostic results d/w the patient in great detail. Based on history, exam and diagnostic results, plan will be for outpatient follow up. Patient instructed to follow-up with the clinic in 1-2 days without fail. Return to the emergency room at any time for any new or worsening symptoms. Patient states she fully agrees with and understands discharge instructions. States that she agrees with the plan and disposition. Verbalized and repeated discharge instructions and plan. I have given the patient opportunity to ask any additional questions. Scribe Attestation: Documented by Valeria Eng, acting as a scribe for Deepthi Blevins PA-C. Provider Scribe Attestation: All medical record entries made by the Scribe were at my direction and personally dictated by me. I have reviewed the chart and agree that the record accurately reflects my personal performance of the history, physical exam, medical decision making, and the department course for this patient. I have also personally directed, reviewed, and agree with the discharge instructions and disposition. Disposition - Clinical Impression Clinical Impression: Dizziness, Fatigue - Patient ED Disposition Is Patient to be Admitted: No Counseled Patient/Family Regarding: Studies Performed, Diagnosis, Need For Followup - Disposition Referrals: [facility] [Outside] Disposition: Routine/Home Disposition Time: 19:00 Condition: STABLE Additional Instructions: Thank you for letting us take care of you today. You were treated for dizziness , fatigue. The emergency medical care you received today was directed at your acute symptoms. Return to the Emergency Department if your symptoms worsen, do not improve, or if you have any other problems. Please call one of the physicians/clinics you have been referred to that are listed on the Patient Visit Information form that is included in your discharge packet. Bring any paperwork you were given at discharge with you along with any medications you are taking to your follow up visit. Our treatment cannot replace ongoing medical care by a primary care provider (PCP) outside of the emergency department. Thank you for allowing the [facility] team to be part of your care today. Instructions: Fatigue (DC), Dizziness, Nonvertigo, (DC) Forms: [employer] (Lithuanian) - PA / [employer] WORK[employer] / Resident Statement MD/DO has reviewed & agrees with the documentation as recorded.
[2018-03-26 17:32] LABS: BASO # 0.1 K/uL (0.0-0.2); BASO % 0.8 % (0.0-2.0); EOS # 0.2 K/uL (0.0-0.7); EOS % 2.6 % (0.0-4.0); HEMOGLOBIN 14.5 g/dL (12.0-16.0); LYMPH # 2.1 K/uL (1.0-4.3); LYMPH % 25.3 % (20.0-40.0); MEAN CELL VOLUME 87.7 fl (81.0-99.0); MEAN CORPUSCULAR HEMOGLOBIN 30.5 pg (27.0-31.0); MEAN CORPUSCULAR HGB CONC 34.8 g/dL (33.0-37.0); MEAN PLATELET VOLUME 7.4 fl (7.2-11.7); MONO # 0.6 K/uL (0.0-0.8); NEUT # 5.3 K/uL (1.8-7.0); NEUT % 64.3 % (50.0-75.0); RBC 4.75 Mil/uL (3.80-5.20); RED CELL DISTRIBUTION WIDTH 12.9 % (11.5-14.5); WHITE BLOOD COUNT 8.2 K/uL (4.8-10.8)
[2018-03-26 17:43] LABS: ALB/GLOB RATIO 1.3 (1.0-2.1); ALBUMIN 4.6 g/dL (3.5-5.0); ALT/SGPT 21 U/L (9-52); AST/SGOT 31 U/L (14-36); BLOOD UREA NITROGEN 9 mg/dl (7-17); CALCIUM 9.7 mg/dL (8.4-10.2); GFR AFRICAN-AMERICAN > 60; GFR NON-AFRICAN AMERICAN > 60
--- NOTE | 2018-03-26 17:55 | CT ---
PROCEDURE: CT HEAD WITHOUT CONTRAST. HISTORY: dizziness COMPARISON: None available. TECHNIQUE: Axial computed tomography images were obtained through the head/brain without intravenous contrast. Radiation dose: Total exam DLP = 609.16 mGy -cm. This CT exam was performed using one or more of the following dose reduction techniques: Automated exposure control, adjustment of the mA and/or kV according to patient size, and/or use of iterative reconstruction technique. FINDINGS: HEMORRHAGE: No acute parenchymal, subarachnoid or extra-axial hemorrhage. BRAIN: No evidence of large acute infarct. . Note that the possibility of a small hyperacute infarct cannot be completely excluded. . MRI with diffusion imaging could be performed if further evaluation is required VENTRICLES: No obstructive hydrocephalus. CALVARIUM: Unremarkable. PARANASAL SINUSES: Unremarkable as visualized. No significant inflammatory changes. MASTOID AIR CELLS: Unremarkable as visualized. No inflammatory changes. OTHER FINDINGS: None. IMPRESSION: No acute intracranial hemorrhage. .
--- NOTE | 2018-03-26 18:03 | RAD ---
HISTORY: dizziness COMPARISON: Chest radiographs 01/02/2018. TECHNIQUE: Chest PA and lateral FINDINGS: LUNGS: No active pulmonary disease. PLEURA: No significant pleural effusion identified. No pneumothorax apparent. CARDIOVASCULAR: Normal. OSSEOUS STRUCTURES: No significant abnormalities. VISUALIZED UPPER ABDOMEN: Normal. OTHER FINDINGS: None. IMPRESSION: No interval acute cardiopulmonary disease appreciated.
[2018-03-26 19:54] VITALS: BP 110/69; PULSE 77; RESP 16; TEMP 98.1
--- NOTE | 2018-03-27 10:23 | CARD ---
APPROVED REPORT EKG Measurement Heart [id number] <Conclusion> Normal sinus rhythm T wave abnormality, consider inferior ischemia Abnormal ECG
== END 2018-03-26 19:53 | disposition home or self-care (01) ==
LOC: H.ER 15:55
DX: R42 Dizziness and giddiness (principal); R53.83 Other fatigue